=== PATIENT | female | born 1970 | race Caucasian/White ===

== ENCOUNTER 2023-07-31 11:35 | Emergency (ER) | payer BC, OTHER ==
[~2023-07-31] VITALS: Ht 170.2 cm; Wt 56.7 kg
[2023-07-31 11:35] VITALS: BP_SYST 129; PULSE 69; RESP 19; TEMP 97.8; O2SAT 96
[~2023-07-31 11:35] MED LIST: BIRTH CONTROL
[2023-07-31 12:30] LABS: BASOPHILS % (AUTO) 0.6 % (0.0-2.0); EOSINOPHILS # (AUTO) 0.1 K/uL (0.0-0.4); HEMATOCRIT 34.5 % (36-48); HEMOGLOBIN 11.9 g/dL (12.0-16.0); LYMPHOCYTES # (AUTO) 1.8 K/uL (1.0-5.5); LYMPHOCYTES % (AUTO) 25.6 % (20.5-51.5); MEAN CORPUSCULAR HEMOGLOBIN 31 pg (27-31); MEAN CORPUSCULAR HGB CONC 35 % (32-36); MEAN CORPUSCULAR VOLUME 91 fL (79.0-98.0); MONOCYTES # (AUTO) 0.4 K/uL (0.0-1.0); MONOCYTES % (AUTO) 5.8 % (1.7-9.3); NEUTROPHILS # (AUTO) 4.8 K/uL (1.8-7.7); PLATELET COUNT (AUTO) 292 K/uL (130-430); RED BLOOD CELL COUNT(AUTO) 3.81 MIL/uL (4.2-6.2); RED CELL DISTRIBUTION WIDTH 13.1 % (9.0-15.0); WHITE BLOOD COUNT (AUTO) 7.2 K/uL (4.8-10.8)
[2023-07-31] MEDS: NACL 0.9% 1,000 ML IV ONE ×2 (12:40→13:58)
[2023-07-31 12:44] LABS: BILIRUBIN,URINE NEGATIVE (NEGATIVE); BLOOD, URINE NEGATIVE (NEGATIVE); CLARITY/URINE CLEAR (CLEAR); COLOR,URINE YELLOW (YELLOW); GLUCOSE,URINE NEGATIVE (NEGATIVE); KETONES,URINE NEGATIVE (NEGATIVE); LEUKOCYTE ESTERASE ,URINE NEGATIVE (NEGATIVE); NITRITE, URINE NEGATIVE (NEGATIVE); PH,URINE 7.5 (5.0-8.0); PROTEIN URINE NEGATIVE (NEGATIVE); UROBILINOGEN,URINE 0.2 (0.2-1.0)
[2023-07-31 12:44] LABS: ALANINE AMINOTRANSFERASE 35 U/L (12-78); ALBUMIN 3.6 g/dL (3.4-4.8); ANION GAP 5 (5-15); ASPARTATE AMINOTRANSFERASE 21 U/L (10-37); CALCIUM 8.2 mg/dL (8.4-11.0); CARBON DIOXIDE 26 mmol/L (23-29); CHLORIDE 109 mmol/L (98-107); CREATININE 0.77 mg/dL (0.55-1.30); GFR AFRICAN AMERICAN 101 mL/min (>90); GFR NON AFRICAN-AMERICAN 84 mL/min (>90); GLUCOSE 95 mg/dL (74-106); POTASSIUM 4.1 mmol/L (3.5-5.1); SODIUM SERUM 140 mmol/L (136-145); TOTAL BILIRUBIN 0.5 mg/dL (0.0-1.0); TOTAL PROTEIN, SERUM 6.6 g/dL (6.4-8.3); UREA NITROGEN, BLOOD 10 mg/dL (8-21)
[2023-07-31 12:46] LABS: BILIRUBIN,DIRECT 0.1 mg/dL (0.0-0.3)
[2023-07-31 15:25] VITALS: BP_SYST 129; PULSE 69; RESP 19; TEMP 97.8; O2SAT 96
== END 2023-07-31 15:26 | disposition home or self-care (01) ==
LOC: SED 11:35
DX: R53.1 Weakness (principal); E86.0 Dehydration
CPT/HCPCS: 99285; 96360; 71045; 96361; 80076; 80048; 81001; 85025; 85379; 84484; 36415; 93005; 81025; J7030; 81003